=== PATIENT | female | born 1970 | race Hispanic/Latino ===

== ENCOUNTER 2016-05-16 15:14 | Outpatient (CLI) | payer MEDICARE ==
--- NOTE | 2016-05-16 19:06 | Cat Scan Report ---
FINAL REPORT PROCEDURE: CT LUMBAR SPINE WO CON TECHNIQUE: Computerized axial tomography of the lumbar spine was performed from T12 to the sacrum without contrast material. HISTORY: M545. Low back pain. COMPARISON: No prior studies are available for comparison. FINDINGS: L1-2: No significant abnormality. L2-3: No significant abnormality. L3-4: Small posterior osteophytes. Slight facet arthropathy. L4-5: Mild L4 inferior endplate irregularity. Small posterior osteophytes, slightly more left paramedian. Facet arthropathy, slightly more right-sided. Well corticated density seen anteriorly at L5, likely unfused apophysis. Mild disc space narrowing. Moderate diffuse disc bulge/herniation. Ligamentum flavum thickening. Mild to moderate canal stenosis. Slight foraminal narrowing. L5-S1: Mild facet arthropathy. Moderate diffuse disc bulge/herniation. Consider there could be S1 nerve root contact. Other: Small multilevel osteophytes. Small posterior osteophytes and mild facet arthropathy at T11-12. Degenerative change with osteophytes of the left sacroiliac joint. Pelvic phleboliths. IMPRESSION: Degenerative changes of the lumbar spine as described above. Findings most evident at L4-5 and L5-S1, consider MRI for further characterization including possible nerve root involvement if there is continued clinical concern and patient has no contraindication to MRI.
--- NOTE | 2016-05-16 19:20 | Cat Scan Report ---
FINAL REPORT PROCEDURE: CT CERVICAL SPINE WO CON TECHNIQUE: Computerized tomography of the cervical spine was performed from the skull base to T1 without contrast material. HISTORY: M542 cervicalgia. COMPARISON: No prior studies are available for comparison. FINDINGS: C1-2: No significant abnormality. C2-3: Left-sided facet arthropathy with [id number] foraminal narrowing. Small central disc protrusion. C3-4: Mild left-sided facet arthropathy. Disc osteophyte complex. C4-5: Posterior and uncovertebral osteophytes, slightly more right-sided. Mild right-sided foraminal narrowing. Slight disc bulge. C5-6: Small posterior and uncovertebral osteophytes. Anterior bridging osteophyte. Slight disc bulge. C6-7: Artifact limits evaluation. Anterior fusion. Intervening disc spacer. Mild irregularity about the disc spacer. Posterior and uncovertebral osteophytes, slightly more right-sided. Slight right foraminal narrowing. Best seen on axial images slight irregularity and lucency through the anterior superior endplate of C6, more right-sided. C7-T1: No significant abnormality. Other: Reversal of normal cervical lordosis. Central posterior osteophyte at T2. IMPRESSION: C6-7 anterior fusion. Intervening disc spacer. Slight lucency about the disc spacer. There also irregularity of the anterior superior aspect of C6. Findings could be expected postsurgical, but consider correlating if there is concern for infectious/inflammatory or even age indeterminate posttraumatic process. Consider MRI for further characterization if there is continued clinical concern and if patient has no contraindication to MRI. Degenerative change. Reversal of normal cervical lordosis, consider patient positioning or muscle spasm..
--- NOTE | 2016-05-17 08:35 | XRay Report ---
Bilateral knees, 3 views each: There are periarticular spurs involving both knees worse on the right than left and slightly worse on the medial compartments of the knees than the lateral compartments. The femur is slightly subluxed medially relative to the tibia on the right side and the articular margins of the femur on the right have areas of flattening and involution of the medial side. The articular margins of the left appear somewhat smoother and more even. There is retropatellar narrowing on the right. The joint spaces appear generally preserved bilaterally. The bones are well-mineralized. No effusions identified. Impression: Bilateral degenerative changes worse on the right than left with mild subluxation of the right alignment.
== END 2016-05-16 15:15 | disposition home or self-care (01) ==
LOC: CT 15:14
DX: M48.06 Spinal stenosis, lumbar region (principal); M50.20 Other cervical disc displacement, unspecified cervical region; M25.78 Osteophyte, vertebrae; M43.22 Fusion of spine, cervical region; I87.8 Other specified disorders of veins; M47.896 Other spondylosis, lumbar region; M25.562 Pain in left knee; M54.5 Low back pain; M25.561 Pain in right knee
CPT/HCPCS: 72125; 72131

== ENCOUNTER 2016-09-11 06:14 | Observation (INO) | payer MEDICARE ==
--- NOTE | 2016-09-10 17:40 | History and Physical Report ---
History of Present Illness Date of examination: 09/09/16 Date of admission: 09/11/2016 Chief complaint: chronic pelvic pain and abnormal bleeding History of present illness: 46y/o with chronic pelvic pain and abnormal vaginal bleeding. The patient reports a history of endometriosis. She states her pain is worsening and elects to have definitive surgical management. Patient has been reassessed/reevaluated/re-examined. H&P has been reviewed. No interval changes. Past History Past Medical History: other (endometriosis; antisocial disorder) Past Surgical History: section, other (bariatric surgery; ovarian cystectomy) Social history: single - Obstetrical History : 8 Para: 3 Hx # Term Pregnancies: 0 Number of Pregnancies: 3 Spontaneous Abortions: 1 Induced : 4 Number of Living Children: 3 Medications and Allergies Allergies Allergy/AdvReac Type Severity Reaction Status Date / Time aripiprazole [From Abilify] Allergy Hives Unverified 09/09/16 10:03 atomoxetine HCl Allergy Hives Unverified 09/09/16 10:03 [From Strattera] mirtazapine [From Remeron] Allergy Hives Unverified 09/09/16 10:03 Sulfa (Sulfonamide Allergy Anaphylaxis Verified 09/09/16 10:03 Antibiotics) Home Medications Medication Instructions Recorded Confirmed Last Taken Type Duloxetine HCl [DULoxetine] 60 mg PO HS 08/07/16 09/09/16 09/10/16 History LORazepam [Ativan] 2 mg PO QHS 08/07/16 09/09/16 09/10/16 History Oxycodone HCl/Acetaminophen 1 tab PO BID PRN 08/07/16 09/11/16 09/11/16 05:30 History [OxyCODONE-Acetaminophen 7.5-325] Topiramate [Topamax] 300 mg PO HS 08/07/16 09/09/16 09/10/16 History Review of Systems Genitourinary: vaginal bleeding, pelvic pain - Physical Exam Breasts: Positive: deferred Cardiovascular: Regular rate Lungs: Positive: Clear to auscultation Abdomen: Positive: normal appearance, soft Results Result Diagrams: 09/10/16 06:55 All other labs normal. Assessment and Plan scheduled for a robotic hysterectomy/BSO - Patient Problems (1) Endometriosis Current Visit: Yes Status: Acute Plan to address problem: scheduled for a robotic hysterectomy/BSO (2) Chronic pelvic pain in female Current Visit: Yes Status: Acute
[~2016-09-11 06:14] MED LIST: ANCEF/STERILE WATER 2 GM/20 ML 2 GM/20 ML SYRINGE IV SCH
[2016-09-11] MEDS ORDERED: NACL BACTERIOSTATIC INFILTRATI ONE (06:31)
[2016-09-11] MEDS ORDERED: SUBLIMAZE IV NR (06:57)
--- NOTE | 2016-09-11 06:57 | Anesthesia Day of Surgery ---
Anesthesia Day of Surgery - Day of Surgery Patient Examined: Yes Patient H&P Reviewed: Yes Patient is NPO: Yes
--- NOTE | 2016-09-11 06:57 | Anesthesia Consultation ---
Anesthesia Consult and Med Hx Date of service: 09/11/16 - Airway Anesthetic Teeth Evaluation: Poor ROM Head & Neck: Adequate Mental/Hyoid Distance: Adequate Mallampati Class: Class I Intubation Access Assessment: Good - Pulmonary Exam CTA: Yes - Cardiac Exam Cardiac Exam: RRR - Pre-Operative Health Status ASA Pre-Surgery Classification: ASA2 Proposed Anesthetic Plan: General - Pulmonary Hx Asthma: Yes (as a child) - Central Nervous System Hx Seizures: Yes (x1 only with Benzo withdrawal) Hx Psychiatric Problems: Yes - Other Systems Hx Cancer: No - Additional Comments Anesthesia Medical History Comments: Fibromyalgia
[2016-09-11] MEDS ORDERED: MARCAINE 0.5% INFILTRATI NR (07:00)
[2016-09-11] MEDS ORDERED: PEPCID PO NR (07:00)
[2016-09-11] MEDS ORDERED: XYLOCAINE 1% 20 mL INFILTRATI NR (07:00)
[2016-09-11] MEDS ORDERED: LACTATED RINGERS 1,000 ML ONE ×2 (07:05→10:50)
[2016-09-11] MEDS ORDERED: SUBLIMAZE ONE (07:05)
[2016-09-11] MEDS ORDERED: MARCAINE-EPI/PF 0.25%-1:200,000 INFILTRATI ONE ×2 (07:06→07:09)
[2016-09-11] MEDS ORDERED: MARCAINE-EPI 0.5%-1:200,000 INFILTRATI ONE (07:06)
[2016-09-11] MEDS ORDERED: NEOSPORIN GU IR ONE ×2 (07:10→10:38)
[2016-09-11 07:11] LABS: Basophils % (Auto) 0.9 % (0.0-1.8); Eosinophils % (Auto) 2.2 % (0.0-4.3); Mean Corpuscular HGB Conc 30 % (30-34); Mean Corpuscular Hemoglobin 21 pg (28-32); Mean Corpuscular Volume 71 fl (79-97); Platelet Count 270 K/mm3 (140-440); Red Cell Distribution Width 17.1 % (13.2-15.2)
[2016-09-11] MEDS ORDERED: NACL 0.9% 500 ML 500 ML IV NR (07:18)
[2016-09-11] MEDS ORDERED: LACTATED RINGERS 1,000 ML IV SCH (07:27)
[2016-09-11] MEDS: VERSED IV NR ×2 (07:28→07:37)
[2016-09-11] MEDS ORDERED: DILAUDID ONE (07:48)
[2016-09-11] MEDS ORDERED: DIPRIVAN 10 MG/ML IV ONE (07:48)
[2016-09-11] MEDS ORDERED: ZEMURON IV ONE (07:48)
[2016-09-11] MEDS ORDERED: XYLOCAINE MPF 2% ONE (07:52)
[2016-09-11] MEDS ORDERED: MARCAINE 0.5% 30 ML INFILTRATI ONE (08:58)
--- NOTE | 2016-09-11 09:04 | Progress Note ---
Subjective Date of service: 09/11/16 Interval history: attempted TAP block but cancelled due to continuous movement by patient leading to contamination of the field several times. No invasive portion of block was initiated. Objective - Constitutional Vitals: Vital Signs - 12hr 09/11/16 09/11/16 09/11/16 06:25 06:40 07:30 Temperature 97.4 F L 97.4 F L Pulse Rate 57 L 57 L 60 Respiratory 12 12 13 Rate Blood Pressure 113/60 113/60 99/55 O2 Sat by Pulse 99 99 Oximetry 09/11/16 09/11/16 09/11/16 07:31 07:34 07:39 Temperature Pulse Rate 55 L 60 59 L Respiratory 12 13 10 L Rate Blood Pressure 101/52 98/54 103/40 O2 Sat by Pulse 98 Oximetry 09/11/16 09/11/16 09/11/16 07:44 07:49 07:54 Temperature Pulse Rate 56 L 65 57 L Respiratory 12 22 14 Rate Blood Pressure 95/55 98/53 105/65 O2 Sat by Pulse 100 99 99 Oximetry 09/11/16 09/11/16 09/11/16 07:59 08:15 08:23 Temperature 97.3 F L Pulse Rate 54 L 53 L 59 L Respiratory 13 14 20 Rate Blood Pressure 101/58 111/62 109/60 O2 Sat by Pulse 100 100 99 Oximetry 09/11/16 08:38 Temperature 97.1 F L Pulse Rate 50 L Respiratory 16 Rate Blood Pressure 98/52 O2 Sat by Pulse 100 Oximetry - Labs CBC & Chem 7: 09/10/16 06:55 Labs: Abnormal lab results 09/10/16 09/11/16 Range/Units 06:55 06:50 Hgb 8.0 L (10.1-14.3) gm/dl Hct 27.0 L (30.3-42.9) % MCV 71 L (79-97) fl MCH 21 L (28-32) pg RDW 17.1 H (13.2-15.2) % Lymph % (Auto) 36.7 H (13.4-35.0) % Kidder % (Auto) 8.9 H (0.0-7.3) % Crossmatch See Detail
--- NOTE | 2016-09-11 09:16 | Admit Criteria Form ---
Admission Criteria Documentation: AMBULATORY SURGERY EXCEPTION CRITERIA Ambulatory Surgery Exception Criteria ( Place 'X' for any and all applicable criteria): Surgery or procedure performed on ambulatory basis may require inpatient stay for[A] ANY ONE of the following(1)(2)(3)(4)(5)(6)(7)(8)(9): [X] I. A preoperative situation, condition, or finding that warrants inpatient stay as indicated by ANY ONE of the following: [X] a) Inpatient care needed because of severity of a disease or condition rather than the surgery (eg, severe cardiac or respiratory disease, severe infection) (15) (16 ) (17) (18) [] b) Emergent procedure (eg, angioplasty for acute ischemia)(19) [] c) Complex surgical approach or situation as indicated by ANY ONE of the following(3): [] i) Open approach needed instead of usual endoscopic, transcatheter, or other less invasive procedure [] ii) Difficult approach because of previous operation [] iii) Airway monitoring required after open neck procedures(20)(21) [] iv) Large mass requiring unusually extensive dissection [] v) Additional complicating feature requiring inpatient care (eg, drain management)(22(23): [] d) Major surgery in a pt with high anesthetic risk as indicated by ANY ONE of the following (2)(3)(5)(7)(8): [] i) ASA risk class III or higher (severe systemic disease impairing function) [D] [] ii) Advanced age (eg, older than 85 years)(14)(24) [] iii) Symptomatic heart failure(25) [] iv) Symptomatic asthma or COPD(8)(21) [] v) Morbid obesity with hemodynamic or respiratory problems(20)( 21)(26)(27) [] vi) Obstructive sleep apnea(20)(21) [] vii) Former premature infants who are younger than 60 weeks [] viii) High risk for severe postoperative abnormalities (eg, severe postoperative hypocalcemia after parathyroidectomy for severe hyperparathyroidism)(27)( 28) [] ix) Unstable angina(25) [] e) Drug-related risk requiring inpatient stay as indicated by ANY ONE of the following(5)(10)(14)(32)(33) [] i) Procedure requires discontinuing drugs or other therapy (eg , antiarrhythmic medication, antiseizure medication), which necessitates inpatient observation or treatment.(18)(31) [] ii) Major surgery and high risk drug use as indicated by ANY ONE of the following: [] 1) Active abuse of cocaine or similar drug [] 2) Monoamine oxidase inhibitor use [] 3) Other drug identified as posing risk [] f) Inadequate outpatient care situation as indicated by ANY ONE of the following(5)(10)(14)(32)(33) [] i) Patient lives remote from medical facility and procedure has urgent complication potential, and temporary nearby residence cannot be arranged [] ii) Patient will have postprocedure incapacitation and inadequate assistance at home, or alternative level of care cannot be arranged. [] iii) Patient will have long general anesthesia or procedure side effect resolution time, and competent person to stay with patient on first postoperative night at home or alternative level of care cannot be arranged. []iv) Other inadequate outpatient situation that cannot be handled by other means [] II. A perioperative event, condition, or finding that warrants inpatient stay as indicated by ANY ONE of the following (1)(2)(3): [] a) Inadequate physiologic recovery: cardiovascular, respiratory, or hemodynamic status not normal or near preoperative baseline(18) [] b) Hemodynamic instability [] c) Patient not alert with near normal or baseline mental status [] d) Temperature not normal or as expected and not appropriate for outpatient treatment of condition [] e) Ambulatory or appropriate activity level status not yet achieved post procedure [E](34)(35)(36) [] f) Operative site not appropriate (eg, unexpected or excessive drainage or bleeding) [] g) Postoperative effects not resolved or adequately managed (eg, significant pain or vomiting not appropriate for outpatient or next level of care)(10)(12) [] h) Complicating features requiring inpatient care as indicated by ANY ONE of the following(37): [] i) Severe complications of procedure (eg, bowel injury, airway compromise, vascular injury,severe hemorrhage) [] ii) Extensive (eg, dissection far beyond usual scope of procedure ) or prolonged (eg, 120 minutes beyond usual) surgery needed requiring inpatient postoperative care [] iii) Conversion to an open or complex procedure that requires inpatient care (eg, open vs laparoscopic cholecystectomy, abdominal vs vaginal hysterectomy)(38) [] iv) Comorbid condition or test result identified during or post procedure that requires inpatient care (7) [] v) Malignant hyperthermia(30) [] vi) Other complicating feature requiring inpatient care(22)(23) Inpatient stay may be needed until ALL of the following are present (1)(2)(3)(4) (5)(6)(10)(14)(33)(40): []a) Physiologic recovery: cardiovascular, respiratory, and hemodynamic status normal or near preoperative baseline []b) Hemodynamic stability []c) Patient alert, with near normal or baseline mental status []d) Temperature appropriate: patient afebrile or temperature appropriate for outpt treatment of condition []e) Activity level appropriate: ambulatory or appropriate activity level post procedure []f) Operative site appropriate as indicated by ALL of the following: []i) Site dry or with expected drainage []ii) Any blood noted is as expected for procedure. []g) Postoperative effects resolved or managed as indicated by ALL of the following: []i) Pain management appropriate for outpatient (or next level of) care(10) []ii) Minimal nausea and vomiting: if present, successfully treated with oral medication(12) []iii) Headache, dizziness, or drowsiness (if present) are mild. []h) Voiding status acceptable as indicated by ANY ONE of the following: []i) Voiding spontaneously []ii) No voiding but instructions given for follow-up in 6 to 8 hours []iii) Urinary catheter in place, and instructions given for follow-up []i) Complicating features requiring inpatient care manageable at a lower level of care(37) []j) Comorbid conditions manageable at a lower level of care(37) The original [employer] content created by [employer] has been revised. The portions of the content which have been revised are identified through the use of italic text or in bold, and [employer] has neither reviewed nor approved the modified material. All other unmodified content is copyright [employer]. Please see references footnoted in the original [employer] edition 2016 Admission Criteria Met: Yes
[2016-09-11] MEDS ORDERED: ZOFRAN IV PRN (09:36)
[2016-09-11] MEDS ORDERED: DILAUDID IV PRN (09:36)
[2016-09-11] MEDS ORDERED: ROBINUL ONE (10:01)
[2016-09-11] MEDS ORDERED: NEOSTIGMINE ONE (10:01)
[2016-09-11] MEDS ORDERED: ZOFRAN ONE (10:01)
--- NOTE | 2016-09-11 10:20 | Operative Report ---
Operative Report Operative Report: Date of surgery: 09/11/2016 Preoperative diagnoses: Chronic pelvic pain; dysfunctional uterine bleeding; anemia Postoperative diagnoses: same as above Procedure: Robotic hysterectomy; bilateral salpingo-oophorectomy Surgeon: Barbara Buchanan M.D. Belt Maker: Casey Gibson Anesthesia: Gen. endotracheal anesthesia Estimated blood loss: 50 mL Pathology: Uterus, cervix, tubes and ovaries Indication: 46-year-old with a history of worsening chronic pelvic pain and dysfunctional uterine bleeding. The patient's vaginal bleeding was so significant that she had severe iron deficiency anemia requiring transfusion of blood products prior to surgery. Procedure: The patient was taken to the operating room and given general endotracheal anesthesia without complication. She is prepped and draped in a normal sterile fashion. A bivalve speculum was placed in the patient's vagina and a single- tooth tenaculum placed on the anterior lip of the cervix. The uterus was sounded with the uterine sound. A [employer] uterine manipulator was placed in the bivalve speculum was then removed. Attention was then turned to the patient's abdomen where a millimeter supra umbilical skin incision was then made. A Veress needle was placed and peritoneal entry was verified water-filled syringe. Insufflation of the peritoneal cavity was performed with CO2 gas. The 12 mm trocar was then placed under direct visualization. An additional 8 mm trocar was placed on the patient's left and right lateral side just opposite of the supraumbilical trocar. An additional 5 mm right lateral trocar was then placed as the accessory port. The patient was then placed in steep Trendelenburg. The da Wendy robot was then engaged. A fenestrated forcep was placed in arm 2 and a vessel sealer was placed in arm 1. The surgeon then transferred to the surgical console. The mesosalpinx was then isolated on the right. The vessel sealer was used to coagulate the mesosalpinx which was then transected. The infundibulopelvic ligament was then coagulated and transected. The tube and ovary were transected from the blood supply. The round ligament was then coagulated and transected also. The vesicouterine peritoneum was then entered from the patient's right side. The uterine vessels were then coagulated with the vessel sealer. The vessels were then transected . Attention was then turned to the patient's left side where the infundibulopelvic ligament and mesosalpinx were again isolated coagulated and transected. The vesical peritoneum was then entered from the left and joined in the midline. Peritoneum was reflected off of the lower uterine segment. Uterine vessels were then coagulated and then transected. The blood supply to the uterus was adequately contained, a posterior colpotomy was made. The V care ring was visualized. Posterior colpotomy was created with the monopolar scissors. The incision was continued circumferentially until anterior colpotomy was made. The cervix and uterus were amputated from the vaginal cuff. The uterus was then removed along with the tubes and ovaries bilaterally through the vagina and a warm laparotomy sponge was placed and maintain the pneumoperitoneum. The vaginal cuff was then closed in a running fashion with V lock suture. Irrigation of the pelvis was performed. Tisseel was applied to the incision. The supraumbilical 12 mm trocar site was closed with the Ion Lay device. The skin was then reapproximated with 4-0 Monocryl. The tissue was sent to pathology which included the cervix and uterus. The patient was then successfully extubated. She was then taken to the recovery room in stable condition. All sponge laps and needle counts were correct x2.
[2016-09-11] MEDS ORDERED: NARCAN 0.4 MG/1 ML IV PRN (10:27)
[2016-09-11] MEDS ORDERED: MILK OF MAGNESIA PO PRN (10:28)
[2016-09-11] MEDS ORDERED: TYLENOL PO PRN (10:28)
[2016-09-11] MEDS ORDERED: MARCAINE 0.5% INFILTRATI ONE (10:38)
[2016-09-11] MEDS ORDERED: NACL 0.9% IR ONE ×2 (10:38)
[2016-09-11] MEDS ORDERED: MORPHINE PCA 30MG/30ML IV SCH (11:00)
[2016-09-11] MEDS ORDERED: D5LR 1,000 ML IV SCH (11:00)
[2016-09-11] MEDS ORDERED: PERCOCET 5/325 PO PRN (11:00)
[2016-09-11] MEDS: TORADOL IV SCH ×3 (11:03→23:54)
--- NOTE | 2016-09-11 12:16 | Post Anesthesia Evaluation ---
- Post Anesthesia Evaluation Patient Participated: Yes Airway Patent: Yes Stable Respiratory Function: Yes Temp > 96.8F: Yes Pain Manageable: Yes Adequeate Hydration: Yes Anesthesia Complications: No Block Receding Appropriately: Not Applicable
[2016-09-12 04:34] LABS: Hematocrit 31.6 % (30.3-42.9); Hemoglobin 9.7 gm/dl (10.1-14.3)
[2016-09-12] MEDS: TORADOL IV SCH (05:47)
--- NOTE | 2016-09-12 11:11 | Progress Note ---
Assessment and Plan - Patient Problems (1) Endometriosis Current Visit: Yes Status: Acute Plan to address problem: Doing well Discharge home (2) Chronic pelvic pain in female Current Visit: Yes Status: Acute Subjective - Subjective Date of service: 09/12/16 Interval history: Condition is without any significant complaints. She is tolerating a regular diet and has been able to void since removal of her Valentine. Patient reports: appetite normal, voiding normally, pain well controlled Objective - Vital Signs Latest vital signs: Vital Signs Temp Pulse Pulse Resp BP BP Pulse Ox 09/12/16 08:16 98.4 F 60 18 102/64 09/12/16 04:30 98.6 F 77 18 109/63 09/12/16 00:00 98.6 F 70 16 110/60 09/11/16 19:20 98.6 F 76 18 111/63 09/11/16 18:37 16 09/11/16 17:48 18 09/11/16 16:10 97.5 F L 53 L 18 118/64 09/11/16 16:00 16 09/11/16 14:16 16 09/11/16 12:30 97.7 F 52 L 16 128/78 100 09/11/16 11:35 97.6 F 49 L 14 138/80 100 09/11/16 11:30 97 F L 49 L 16 133/78 100 Intake and Output 09/11/16 09/12/16 09/12/16 22:59 06:59 14:59 Intake Total 1315 1350 600 Output Total 1200 1400 350 Balance 115 -50 250 Intake: IV 375 750 D5lr 1,000 ml @ 125 mls/ 375 750 hr IV DIRECT THOM Rx#: [id number] Oral 540 300 480 Intake, Free Water 400 300 120 Output: Urine 1200 1400 350 Indwelling Catheter 800 800 Void 400 600 350 Other: Total, Intake Amount 300 300 360 Total, Output Amount 800 800 350 Voiding Method Indwelling Catheter # Voids Void 1 - Exam Cardiovascular: Present: Regular rate Abdomen: Present: normal appearance, soft Incision: Present: normal, dry - Labs Labs: Abnormal lab results 09/11/16 09/12/16 Range/Units 06:50 03:25 Hgb 9.7 L (10.1-14.3) gm/dl Crossmatch See Detail
--- NOTE | 2016-09-12 11:13 | Discharge Summary ---
Providers - Providers Date of Admission: 09/11/16 10:28 Date of discharge: 09/12/16 Attending physician: ADRIAN KIRKLAND Primary care physician: FORESTRY TREE PRUNER Hospitalization Reason for admission: other (dysfunctional uterine bleeding; chronic pelvic pain ) Procedure: other (attic hysterectomy and bilateral salpingo-oophorectomy) Incision: normal, dry Hospital course: Patient was admitted the day of surgery and underwent a robotic hysterectomy and bilateral salpingo-oophorectomy. Prior to surgery the patient had to be transfused 2 units of packed red blood cells secondary to anemia. Please see operative note for details of surgery. Her postoperative course was unremarkable. Condition at discharge: Good Disposition: DISCHARGED TO HOME OR SELFCARE - Discharge Diagnoses (1) Endometriosis Status: Acute (2) Chronic pelvic pain in female Status: Acute Plan - Discharge Medications Prescriptions: RX: traMADol [Ultram 50 MG tab] 50 mg PO Q6HR PRN #60 tablet PRN Reason: Pain - Provider Discharge Summary Activity: no sex for 6 weeks, no heavy lifting 4 weeks, no strenuous exercise Diet: routine Instructions: routine Additional instructions: [] Smoking cessation referral if applicable(refer to patient education folder for contact #) [] Refer to [facility] Booklet Call your doctor immediately for: * Fever > 100.5 * Heavy vaginal bleeding ( >1 pad per hour) * Severe persistent headache * Shortness of breath * Reddened, hot, painful area to leg or breast * Drainage or odor from incision. * Keep incision clean and dry at all times and follow doctor's instructions regarding bathing/showering Pelvic rest for 6 weeks - Follow up plan
[2016-09-12] MEDS ORDERED: FLUARIX QUAD 2016-2017(36 MOS+) IM ONE (12:00)
[2016-09-12 12:59] VITALS: BP 114/60
== END 2016-09-12 15:07 | disposition home or self-care (01) ==
LOC: OR 06:14 → OB 10:28
PROVIDERS: ADMIT Obstetrics & Gynecology; ATTEND Obstetrics & Gynecology
DX: N80.9 Endometriosis, unspecified (principal); G89.29 Other chronic pain; R10.2 Pelvic and perineal pain; D64.9 Anemia, unspecified; N93.8 Other specified abnormal uterine and vaginal bleeding; Z23 Encounter for immunization
CPT/HCPCS: 36415; 36430; 58571; 64450; 81025; 85014; 85018; 85025; 86850; 86900; 86901; 86920; 88307; 90686; 96374; 96375; 96376; A4217; C9250; G0008; G0378; J0690; J1170; J1885; J2250; J2270; J2405; J2704; J2710; J3010; J7120; J7121; P9016; 90471